=== PATIENT | male | born 1980 | race Caucasian/White ===

== ENCOUNTER 2022-09-24 17:31 | Observation (INO) ==
[2022-09-24] MEDS ORDERED: MoRPHine SULFATE 4 MG/ML 1 ML CARP\\VIAL IV PRN (17:37)
[2022-09-24] MEDS ORDERED: ONDANSETRON INJ 2 MG/ML 2 ML VIAL IV STA (17:37)
[2022-09-24] MEDS ORDERED: cefOXitin 2,000 MG/60 ML BAG IV STA (17:39)
[2022-09-24] MEDS ORDERED: SODIUM CHLORIDE 0.9% 1000ML 1,000 ML IV SCH (17:45)
--- NOTE | 2022-09-24 17:45 | Emergency Department Note ---
History of Present Illness General Chief complaint: Abnormal Labs/Diagnostic Testing Stated complaint: APPENDICITIS, REF BY DOC, ABNORMAL LABS Time Seen by Provider: 09/24/22 17:40 History of Present Illness Maximum Pain Intensity: 2 This is a 42-year-old male presenting to the emergency department for evaluation of ongoing right lower quadrant abdominal pain for the past several days. The patient with his primary care physician and had outpatient ultrasound performed. This is POSITIVE for acute appendicitis. The patient now presents to the ER for further care. He rates his current discomfort a 2/10. He last had a small amount of food around 3 PM. No history of abdominal surgery. No fevers or chills. Home Medications Medication Instructions Recorded Confirmed Type Cetirizine (Zyrtec) 10 mg PO DAILY PRN Allergies #0 10/20/13 History tabs Multivitamin 1 tab PO DAILY PRN PRN #0 tabs 10/20/13 History Allergies Allergy/AdvReac Type Severity Reaction Status Date / Time No Known Allergies Allergy Mild Unverified 06/24/07 15:01 Past Med/Surg History Medical History No chronic diseases present Surgical History Hx of LASIK Social History Smoking Status: Never smoker Cigarettes Per Day: 1-2 weekly; Second Hand Exposure: No; Do You Dip or Chew Tobacco: No; Hx Alcohol Use: Yes Alcohol type: beer, wine and hard liquor Hx Substance Use: No Preferred Language: Lithuanian Communication Ability: Effective Photovoltaic Installer Required: No Beliefs That Will Affect Care: None Current Living Situation: Spouse Other Information That Helps Us Care for You: No Feels Safe at Home: Yes Safety Concerns: Feels Safe At This Time Assistive Devices: None Review of Systems A total of 10 systems reviewed and were otherwise negative Physical Exam Vital Signs Vital Signs - 24 hr 09/24/22 17:37 09/24/22 17:50 09/24/22 18:42 Temperature 36.9 C Temperature Source Temporal Artery Scan Pulse Rate 89 83 Pulse Rate [Apical] Pulse Rate [Right Finger] 74 Pulse Rate from SpO2 Sensor Pulse Rhythm [Apical] Pulse Rhythm [Right Finger] Regular Pulse Strength [Apical] Pulse Strength [Right Finger] Normal Respiratory Rate 20 16 Respiratory Effort / Characteristics Non-Labored Non-Labored Spontaneous Respiratory Depth Normal Normal Respiratory Pattern Regular Blood Pressure 142/100 H Blood Pressure [Left Arm] 137/100 Blood Pressure Mean 114 Blood Pressure Mean [Left Arm] 112 Blood Pressure Position [Left Arm] Lying Pulse Oximetry 97 97 Oxygen Delivery Method Room Air Room Air Oxygen Flow Rate Sepsis Recent Fever Within 48 Hours No Sepsis New/Unexplained Change in Mental Status N/A Sepsis Action Taken by Nursing No Action Required 09/24/22 20:00 09/24/22 17:50 09/24/22 18:00 Temperature 37.1 C Temperature Source Oral Pulse Rate 79 87 Pulse Rate [Apical] Pulse Rate [Right Finger] Pulse Rate from SpO2 Sensor Pulse Rhythm [Apical] Pulse Rhythm [Right Finger] Pulse Strength [Apical] Pulse Strength [Right Finger] Respiratory Rate 19 19 Respiratory Effort / Characteristics Respiratory Depth Respiratory Pattern Blood Pressure 140/95 135/98 Blood Pressure [Left Arm] Blood Pressure Mean 110 Blood Pressure Mean [Left Arm] Blood Pressure Position [Left Arm] Pulse Oximetry 96 Oxygen Delivery Method Room Air Oxygen Flow Rate Sepsis Recent Fever Within 48 Hours Sepsis New/Unexplained Change in Mental Status Sepsis Action Taken by Nursing 09/24/22 18:00 09/24/22 18:10 09/24/22 18:20 Temperature Temperature Source Pulse Rate 83 93 H 80 Pulse Rate [Apical] Pulse Rate [Right Finger] Pulse Rate from SpO2 Sensor Pulse Rhythm [Apical] Pulse Rhythm [Right Finger] Pulse Strength [Apical] Pulse Strength [Right Finger] Respiratory Rate 21 23 17 Respiratory Effort / Characteristics Respiratory Depth Respiratory Pattern Blood Pressure Blood Pressure [Left Arm] Blood Pressure Mean Blood Pressure Mean [Left Arm] Blood Pressure Position [Left Arm] Pulse Oximetry Oxygen Delivery Method Oxygen Flow Rate Sepsis Recent Fever Within 48 Hours Sepsis New/Unexplained Change in Mental Status Sepsis Action Taken by Nursing 09/24/22 18:30 09/24/22 18:30 09/24/22 18:40 Temperature Temperature Source Pulse Rate 81 82 Pulse Rate [Apical] Pulse Rate [Right Finger] Pulse Rate from SpO2 Sensor Pulse Rhythm [Apical] Pulse Rhythm [Right Finger] Pulse Strength [Apical] Pulse Strength [Right Finger] Respiratory Rate 21 31 H Respiratory Effort / Characteristics Respiratory Depth Respiratory Pattern Blood Pressure 137/100 Blood Pressure [Left Arm] Blood Pressure Mean 112 Blood Pressure Mean [Left Arm] Blood Pressure Position [Left Arm] Pulse Oximetry Oxygen Delivery Method Oxygen Flow Rate Sepsis Recent Fever Within 48 Hours Sepsis New/Unexplained Change in Mental Status Sepsis Action Taken by Nursing 09/24/22 18:50 09/24/22 19:00 09/24/22 19:00 Temperature Temperature Source Pulse Rate 76 72 Pulse Rate [Apical] Pulse Rate [Right Finger] Pulse Rate from SpO2 Sensor 74 Pulse Rhythm [Apical] Pulse Rhythm [Right Finger] Pulse Strength [Apical] Pulse Strength [Right Finger] Respiratory Rate 19 18 Respiratory Effort / Characteristics Respiratory Depth Respiratory Pattern Blood Pressure 138/97 Blood Pressure [Left Arm] Blood Pressure Mean 110 Blood Pressure Mean [Left Arm] Blood Pressure Position [Left Arm] Pulse Oximetry 98 Oxygen Delivery Method Oxygen Flow Rate Sepsis Recent Fever Within 48 Hours Sepsis New/Unexplained Change in Mental Status Sepsis Action Taken by Nursing 09/24/22 19:10 09/24/22 19:20 09/24/22 19:30 Temperature Temperature Source Pulse Rate 76 81 Pulse Rate [Apical] Pulse Rate [Right Finger] Pulse Rate from SpO2 Sensor 76 80 Pulse Rhythm [Apical] Pulse Rhythm [Right Finger] Pulse Strength [Apical] Pulse Strength [Right Finger] Respiratory Rate 21 22 Respiratory Effort / Characteristics Respiratory Depth Respiratory Pattern Blood Pressure 140/95 Blood Pressure [Left Arm] Blood Pressure Mean 110 Blood Pressure Mean [Left Arm] Blood Pressure Position [Left Arm] Pulse Oximetry 97 96 Oxygen Delivery Method Oxygen Flow Rate Sepsis Recent Fever Within 48 Hours Sepsis New/Unexplained Change in Mental Status Sepsis Action Taken by Nursing 09/24/22 19:30 09/24/22 19:40 09/24/22 19:50 Temperature Temperature Source Pulse Rate 80 82 89 Pulse Rate [Apical] Pulse Rate [Right Finger] Pulse Rate from SpO2 Sensor 80 83 88 Pulse Rhythm [Apical] Pulse Rhythm [Right Finger] Pulse Strength [Apical] Pulse Strength [Right Finger] Respiratory Rate 20 24 22 Respiratory Effort / Characteristics Respiratory Depth Respiratory Pattern Blood Pressure Blood Pressure [Left Arm] Blood Pressure Mean Blood Pressure Mean [Left Arm] Blood Pressure Position [Left Arm] Pulse Oximetry 97 98 96 Oxygen Delivery Method Oxygen Flow Rate Sepsis Recent Fever Within 48 Hours Sepsis New/Unexplained Change in Mental Status Sepsis Action Taken by Nursing 09/24/22 21:40 Temperature 36.8 C Temperature Source Oral Pulse Rate Pulse Rate [Apical] 114 H Pulse Rate [Right Finger] Pulse Rate from SpO2 Sensor Pulse Rhythm [Apical] Regular Pulse Rhythm [Right Finger] Pulse Strength [Apical] Normal Pulse Strength [Right Finger] Respiratory Rate 24 Respiratory Effort / Characteristics Non-Labored Spontaneous Respiratory Depth Normal Respiratory Pattern Regular Blood Pressure Blood Pressure [Left Arm] 167/84 H Blood Pressure Mean Blood Pressure Mean [Left Arm] 111 Blood Pressure Position [Left Arm] Semi-fowlers Pulse Oximetry 100 Oxygen Delivery Method Oxymask Oxygen Flow Rate 6 Sepsis Recent Fever Within 48 Hours Sepsis New/Unexplained Change in Mental Status Sepsis Action Taken by Nursing VITALS: Vitals are noted on the nurse's note and reviewed by myself. Vital signs stable. GENERAL: Well-developed, well-nourished, white male, who is in no acute distress and resting comfortably. Patient is cooperative with the examination. HEAD: Normocephalic atraumatic. HEART: Regular rate and rhythm without murmurs gallops or rubs. LUNGS: Clear to auscultation bilaterally without wheezes, rales or rhonchi. No retractions or accessory muscle use. ABDOMEN: Positive normal bowel sounds x 4. Soft, with reproducible tenderness in the right lower quadrant. MUSCULOSKELETAL: No muscle atrophy, erythema, or edema noted. Full range of motion in all extremities. NEURO: Patient was alert and oriented to person place and time. CN II through XII grossly intact. Course Administered Medications Discontinued Medications Bupivacaine HCl/Epinephrine Bitart (Bupivacaine/Epinephrine 0.5% Mpf 1:200,000 30 Ml Vial) Confirm Administered Dose 30 ml .ROUTE .Slice-MED ONE Stop: 09/24/22 18:04 Last Admin: 09/24/22 21:28 Dose: 30 ml Documented By: KHOI Sodium Chloride (Nss 1000ml) 1,000 mls @ 999 mls/hr IV .Q1H1M SUMI Stop: 09/24/22 18:45 Last Infusion: 09/24/22 19:55 Dose: 0 mls/hr Documented By: PAD CUTTER Admin: 09/24/22 18:31 Dose: 999 mls/hr Documented By: JUAN Cefoxitin Sodium (Mefoxin) 2,000 mg in 60 mls @ 100 mls/hr IV NOW STA Stop: 09/24/22 18:14 Last Infusion: 09/24/22 19:05 Dose: 0 mls/hr Documented By: Admin: 09/24/22 18:29 Dose: 100 mls/hr Documented By: PAD CUTTER Ondansetron HCl (Ondansetron Inj 2 Mg/Ml 2 Ml Vial) 4 mg IV NOW STA Stop: 09/24/22 17:38 Last Admin: 09/24/22 22:58 Dose: Not Given Documented By: EGS Medical Decision Making Differential Diagnosis Differential diagnosis: Etiologies such as biliary colic, cholecystitis, hepatitis, pancreatitis, cardiac disease, pancreatitis, gastritis, peptic ulcer disease, appendicitis, cystitis, diverticulitis, mesenteric ischemia, inflammatory bowel disease, ileus, bowel obstruction, testicular/adnexal torsion, aortic pathology, shingles, as well as others were considered Laboratory Data 09/24/22 17:50 09/24/22 17:50 Lab Results 09/24/22 09/24/22 09/24/22 Range/Units 17:50 17:50 18:05 WBC 15.42 H (4.8-10.8) K/ul RBC 4.95 (4.70-6.10) M/uL Hgb 15.5 (14.0-18.0) g/dl Hct 42.6 (42.0-52.0) % MCV 86.1 (80.0-100.0) fL MCH 31.3 (25.0-34.0) pg MCHC 36.4 H (32.0-36.0) g/dL RDW Std Deviation 38.1 (36.4-46.3) fL RDW Coeff of Mabel 12.1 (11.5-14.5) % Plt Count 256 (130-400) K/uL MPV 9.3 L (9.4-12.4) fL Immature Gran % (Auto) 0.3 % Neut % (Auto) 75.4 % Lymph % (Auto) 17.3 % [place] % (Auto) 6.6 % Eos % (Auto) 0.2 % Baso % (Auto) 0.2 % Neut # (Auto) 11.62 H (1.40-6.50) K/uL Lymph # (Auto) 2.67 (1.2-3.4) K/uL [place] # (Auto) 1.02 H (0.11-0.59) K/uL Eos # (Auto) 0.03 (0-0.50) K/uL Baso # (Auto) 0.03 (0-0.2) K/uL Immature Gran # (Auto) 0.05 (0.01-0.20) K/uL Sodium 138 (136-145) mmol/L Potassium 3.5 (3.5-5.1) mmol/L Chloride 104 (98-107) mmol/L Carbon Dioxide 27 (21-32) mmol/L Anion Gap 7 (3-11) BUN 9 (6-23) mg/dl Creatinine 1.03 (0.6-1.4) mg/dl Est Cr Clr Drug Dosing 107.4 ml/min Est GFR ( Amer) 103.4 ml/min Est GFR (Non-Af Amer) 89.2 ml/min BUN/Creatinine Ratio 8.7 L (10-20) Glucose 94 (70-99(Fasting)) mg/dl Calcium 9.4 (8.6-10.3) mg/dl Total Bilirubin 0.7 (0.2-1.0) mg/dl AST 16 (13-39) U/L ALT 17 (7-52) U/L Alkaline Phosphatase 68 (34-104) U/L Total Protein 7.9 (6.0-8.3) gm/dl Albumin 4.6 (3.4-5.0) gm/dl Globulin 3.3 (2.5-4.0) gm/dl Albumin/Globulin Ratio 1.4 (0.9-2) SARS-CoV-2, RNA, NAAT NEGATIVE (NEGATIVE) Imaging Data Radiologist's Impression: Differential diagnosis: Etiologies such as biliary colic, cholecystitis, hepatitis, pancreatitis, cardiac disease, pancreatitis, gastritis, peptic ulcer disease, appendicitis, cystitis, diverticulitis, mesenteric ischemia, inflammatory bowel disease, ileus, bowel obstruction, testicular/adnexal torsion, aortic pathology, shingles, as well as others were considered MDM Narrative Physical exam and history were performed. Nursing notes, EMR, and Medication List were personally reviewed. No social concerns were identified as barriers to patients care. Patient appears to have right lower quadrant abdominal pain with outpatient ultrasound that was POSITIVE for acute appendicitis. IV access was established and labs were obtained. Patient was made NPO. He was hydrated with normal saline and given IV Mefoxin. Orders for morphine and Zofran were placed. COVID is ordered and negative. Patient's blood work is as above and was reviewed. He does have a slightly elevated white blood cell count. He does not have significant anemia or gross electrolyte imbalance. Remaining labs are nondiagnostic. I did reach out to the on-call surgical team, and discussed the case with Dr. Massey, who will evaluate the patient. Please see the surgical team dictation for further patient course, plan, and disposition. The chart was completed utilizing [employer] Speech Voice Recognition Software. Grammatical errors, random word insertions, pronoun errors, and incomplete sentences are an occasional consequence of this system due to software limitations, ambient noise, and hardware issues. Any formal questions or concerns about the content, text, or information contained within the body of th is dictation should be directly addressed to the provider for clarification. . Impression & Plan Acute appendicitis Discharge Plan Visit Data Chief Complaint: Abnormal Labs/Diagnostic Testing Stated Complaint: APPENDICITIS, REF BY DOC, ABNORMAL LABS ED Provider: Dallas Shukla ED Midlevel Provider: Perry White Discharge Problem: Acute appendicitis Patient Disposition: Admitted As Inpatient Discharge Instructions Interventions: ED Discharge Assessment Last Done: 09/24/22 20:00
[2022-09-24] MEDS ORDERED: BUPIVACAINE/EPINEPHRINE 0.5% MPF 1:200,000 30 ML VIAL ONE (18:03)
[2022-09-24 18:08] LABS: Basophils # (auto) 0.03 K/uL (0-0.2); Basophils % (auto) 0.2 %; Eosinophils # (auto) 0.03 K/uL (0-0.50); Eosinophils % (auto) 0.2 %; Hematocrit (blood only) 42.6 % (42.0-52.0); Hemoglobin 15.5 g/dl (14.0-18.0); Immature Granulocytes # (auto) 0.05 K/uL (0.01-0.20); Immature Granulocytes % (auto) 0.3 %; Lymphocytes # (auto) 2.67 K/uL (1.2-3.4); Lymphocytes % (auto) 17.3 %; Mean Corpuscular Hemoglobin 31.3 pg (25.0-34.0); Mean Corpuscular Hgb Conc 36.4 g/dL (32.0-36.0); Mean Corpuscular Volume 86.1 fL (80.0-100.0); Mean Platelet Volume 9.3 fL (9.4-12.4); Monocytes # (auto) 1.02 K/uL (0.11-0.59); Monocytes % (auto) 6.6 %; Neutrophils # (auto) 11.62 K/uL (1.40-6.50); Neutrophils % (auto) 75.4 %; Platelet Count 256 K/uL (130-400); RDW Coefficient of Variation 12.1 % (11.5-14.5); RDW Standard Deviation 38.1 fL (36.4-46.3); Red Blood Count 4.95 M/uL (4.70-6.10); White Blood Count 15.42 K/ul (4.8-10.8)
[2022-09-24 18:24] LABS: Albumin Globulin Ratio 1.4 (0.9-2); Albumin Level 4.6 gm/dl (3.4-5.0); BUN Creatinine Ratio 8.7 (10-20); Bilirubin,Total 0.7 mg/dl (0.2-1.0); Calcium 9.4 mg/dl (8.6-10.3); Creatinine Clr Calc Pharmacy 107.4 ml/min; Est GFR (African American) 103.4 ml/min; Est GFR (Non-African American) 89.2 ml/min; Globulin 3.3 gm/dl (2.5-4.0); Potassium 3.5 mmol/L (3.5-5.1); Total Protein 7.9 gm/dl (6.0-8.3)
[2022-09-24] MEDS ORDERED: fentaNYL citrate PF 100 MCG/2 ML VIAL IV PRN (18:41)
[2022-09-24] MEDS ORDERED: ePHEDrine sulfate 50 MG/ML AMP IV PRN (18:41)
[2022-09-24] MEDS ORDERED: ONDANSETRON INJ 2 MG/ML 2 ML VIAL IV PRN ×2 (18:41→22:57)
[2022-09-24] MEDS ORDERED: HYDROmorphone INJ 2 MG/ML SYR/VIAL IV PRN (18:41)
[2022-09-24] MEDS ORDERED: PROMETHAZINE HCL 6.25 MG in SODIUM CHLORIDE 0.9% 50 ML IV PRN (18:41)
[2022-09-24] MEDS ORDERED: ATROPINE SULFATE 0.1 MG/ML 10ML SYR IV PRN (18:41)
[2022-09-24] MEDS ORDERED: DEXAMETHASONE SOD INJ 4 MG/ML VIAL ONE (19:00)
[2022-09-24] MEDS ORDERED: ONDANSETRON INJ 2 MG/ML 2 ML VIAL ONE (19:00)
[2022-09-24] MEDS ORDERED: ROCURONIUM BROMIDE 10 MG/ML 5 ML VIAL IV ONE (19:00)
[2022-09-24] MEDS ORDERED: MIDAZOLAM HCL 1 MG/ML 2ML VIAL ONE (19:00)
[2022-09-24] MEDS ORDERED: fentaNYL citrate PF 100 MCG/2 ML VIAL ONE (19:00)
[2022-09-24] MEDS ORDERED: SUGAMMADEX SODIUM 200 MG/2 ML VIAL IV ONE (19:00)
[2022-09-24] MEDS ORDERED: LIDOCAINE 2% MPF LOCAL 5 ML VIAL ONE (19:00)
[2022-09-24] MEDS ORDERED: PROPOFOL IV EMULSION 10 MG/ML 20 ML VIAL IV ONE (19:00)
[2022-09-24] MEDS ORDERED: SUCCINYLCHOLINE CHLORIDE 20 MG/ML 10 ML VIAL IV ONE (19:00)
--- NOTE | 2022-09-24 20:14 | Anesthesiology Consultation ---
Date of Service September 24, 2022 Assessment & Plan (1) Encounter for pre-operative examination: Chart Review Chart Review: Acceptable Risk for Surgery and Patient NOT seen in Pre Admission Testing Consults Requested none History Surgery Operation Date: 09/24/22 19:30 Proposed Procedures p Laparoscopic Appendectomy - Prasanna Massey DO Height/Weight Height: 5 ft 9 in Weight: 97.2 kg Allergies Allergy/AdvReac Type Severity Reaction Status Date / Time No Known Allergies Allergy Mild Unverified 06/24/07 15:01 Medications Home Medications Medication Instructions Recorded Confirmed Last Taken Cetirizine (Zyrtec) 10 mg PO DAILY PRN Allergies #0 10/20/13 Unknown tabs Multivitamin 1 tab PO DAILY PRN PRN #0 tabs 10/20/13 Unknown Past Medical History Medical History No chronic diseases present Exercise / Class Metabolic Activity II 4-5 Yardwork/Stairs/Walk up hill Past Surgical History Surgical History Hx of LASIK Past Anesthesia History No Hx of Anesthesia Complications and No Family Hx of Anesthesia Complications History of PONV No Hx of PONV and No Hx of Motion Sickness Social History Smoking Status: Never smoker Physical Exam Vital Signs Last Vital Signs Temp 37.1 C 09/24/22 20:00 Pulse 79 09/24/22 20:00 Resp 19 09/24/22 20:00 BP 140/95 09/24/22 20:00 Pulse Ox 96 09/24/22 20:00 O2 Del Method Room Air 09/24/22 20:00 Testing Laboratory Results 09/24/22 17:50 09/24/22 17:50
--- NOTE | 2022-09-24 20:32 | History & Physical Report ---
Date of Service September 24, 2022 Assessment & Plan (1) Acute appendicitis: Plan: Clinically also consistent with acute appendicitis. Discussed his options as well as risks of surgery which include bleeding infection injury to another organ such as bowel or ureter or bladder DVT PE PA CVA etc. Following our discussion I answered all of his questions. We will proceed LEEROY with laparoscopic appendectomy. Patient agrees to the plan. History of Present Illness Primary Care Provider: Nasreen Morales MD 42-year-old male who has not felt well for several days. He had kind of mid abdominal pain with radiation to his right mid abdomen. He was sent in by his PCP for an outpatient ultrasound which showed acute appendicitis. His white blood cell count of 15,000. Allergies Allergy/AdvReac Type Severity Reaction Status Date / Time No Known Allergies Allergy Mild Unverified 06/24/07 15:01 Home Medications Medication Instructions Recorded Confirmed Type Cetirizine (Zyrtec) 10 mg PO DAILY PRN Allergies #0 10/20/13 History tabs Multivitamin 1 tab PO DAILY PRN PRN #0 tabs 10/20/13 History Past Med/Surg History Medical History No chronic diseases present Surgical History Hx of LASIK Social History Smoking Status: Never smoker Feels Safe at Home: Yes Review of Systems All systems reviewed & are unremarkable except as noted in HPI & below Physical Exam Constitutional: WD/WN, vitals as above no acute distress and not ill appearing Eyes: PERRL, conjunctivae normal, anicteric sclerae EOM intact bilaterally ENMT: external ear and nose normal, oropharynx normal Ears: no hearing impairment Neck: trachea midline, no thyromegaly Respiratory: normal respiratory effort; no respiratory distress and does not use accessory muscles Cardiovascular: Rate/Rhythm: regular rate and regular rhythm Gastrointestinal (Abdomen): Soft. Positive right lower quadrant tenderness. Positive rebound. Positive Rovsing. Skin: no rashes, warm and dry Psychiatric: Orientation: alert, oriented x 3 and cooperative Results & Data Vital Signs (Past 12 Hours) Vital Signs Temp Pulse Pulse Resp BP BP Pulse Ox 09/24/22 19:50 89 22 96 09/24/22 19:40 82 24 98 09/24/22 19:30 80 20 97 09/24/22 19:30 140/95 09/24/22 19:20 81 22 96 09/24/22 19:10 76 21 97 09/24/22 19:00 72 18 98 09/24/22 19:00 138/97 09/24/22 18:50 76 19 09/24/22 18:40 82 31 H 09/24/22 18:30 81 21 09/24/22 18:30 137/100 09/24/22 18:20 80 17 09/24/22 18:10 93 H 23 09/24/22 18:00 83 21 09/24/22 18:00 135/98 09/24/22 17:50 87 19 09/24/22 20:00 37.1 C 79 19 140/95 96 09/24/22 18:42 74 16 137/100 97 09/24/22 17:50 83 09/24/22 17:37 36.9 C 89 20 142/100 H 97 O2 Del Method 09/24/22 19:50 09/24/22 19:40 09/24/22 19:30 09/24/22 19:30 09/24/22 19:20 09/24/22 19:10 09/24/22 19:00 09/24/22 19:00 09/24/22 18:50 09/24/22 18:40 09/24/22 18:30 09/24/22 18:30 09/24/22 18:20 09/24/22 18:10 09/24/22 18:00 09/24/22 18:00 09/24/22 17:50 09/24/22 20:00 Room Air 09/24/22 18:42 Room Air 09/24/22 17:50 09/24/22 17:37 Room Air
[2022-09-24] MEDS ORDERED: diphenhydrAMINE 50 MG/ML VIAL ONE (21:03)
--- NOTE | 2022-09-24 21:45 | Operative Report ---
PG Post Operative Report Pre & Post Diagnosis Operation Date: 09/24/22 19:30 Pre-Op Diagnosis: APPENDICITIS Post-Op Diagnosis: APPENDICITIS I identified the patient and participated in the time-out.: Yes Procedure Operation Date: 09/24/22 19:30 Actual Procedures p Laparoscopic Appendectomy - Prasanna Massey DO Surgeon Prasanna Massey DO Tool Mechanic n/a Estimated Blood Loss 10 Findings Consistent with Post-Op Diagnosis Specimens appendix Description of Procedure After informed consent was obtained the patient was taken to the operating room and placed in supine position. After successful intubation a Barber catheter was placed and the left arm was tucked. I began by making a periumbilical incision with an 11 blade scalpel and carried this down through the soft tissue using electrocautery. The anterior rectus fascia was opened using electrocautery and 2 #0 Vicryl stay sutures were placed. The peritoneum was elevated using hemostats and incised under direct vision using a Metzenbaum scissor. A finger sweep was performed. A 12 mm Acosta trocar was placed and the abdomen was insufflated to 18 mmHg. A laparoscope was inserted and the abdomen was examined in 360. A suprapubic 5 mm port and a left lower quadrant 12 mm port were placed under direct vision. The patient was air planed to the left as well as placed in a slight Trendelenburg position. We began by looking in the right lower quadrant. We were able to readily identify the appendix and it was grossly inflamed. It had not perforated. There was a small amount of purulent fluid in the right lower quadrant and the pelvis. We immediately irrigated and suctioned this out. I was able to use primarily blunt dissection to pull the appendix away from the right lower quadrant sidewall. Next I created a window in the mesentery of the appendix near its base with the cecum. I was then able to use a JACQUELIN brown cartridge stapler to transect first the mesentery of the appendix followed by the appendix itself at its base with the cecum. It was then placed into an Endo Catch bag and removed from the camera port site. We thoroughly irrigated the right lower quadrant as well as the pelvis. There was a small bleeding point on the staple line of the mesentery which I controlled using a Hemoclip. There was adequate hemostasis. I ran the small bowel backwards from the terminal ileum for about 6 feet all of which was normal. All the peritoneal surfaces were normal. Small/ large bowel, liver, stomach etc. all appeared grossly normal. We did a final irrigation and then removed all the trochars and desufflated the abdomen. The fascia of the camera port as well as the left lower quadrant were closed using 0 Vicryl in [id number] fashion. Wounds were all irrigated and closed using 4-0 Monocryl. Marcaine was injected around them for postoperative analgesia and skin glue used as a dressing. The patient was awakened extubated and transferred to recovery in stable condition. I attest to the content of the Intraoperative Record and any orders documented therein. Any exceptions are noted below.
--- NOTE | 2022-09-24 21:58 | Anesthesiology Progress Note ---
Date of Service September 24, 2022 Anesthesia Post Procedure Vital Signs Vital Signs: Temp Pulse Pulse Pulse Resp BP BP 09/24/22 21:50 100 H 22 152/86 H 09/24/22 21:40 36.8 C 114 H 24 167/84 H 09/24/22 19:50 89 22 09/24/22 19:40 82 24 09/24/22 19:30 80 20 09/24/22 19:30 140/95 09/24/22 19:20 81 22 09/24/22 19:10 76 21 09/24/22 19:00 72 18 09/24/22 19:00 138/97 09/24/22 18:50 76 19 09/24/22 18:40 82 31 H 09/24/22 18:30 81 21 09/24/22 18:30 137/100 09/24/22 18:20 80 17 09/24/22 18:10 93 H 23 09/24/22 18:00 83 21 09/24/22 18:00 135/98 09/24/22 17:50 87 19 09/24/22 20:00 37.1 C 79 19 140/95 09/24/22 18:42 74 16 137/100 09/24/22 17:50 83 09/24/22 17:37 36.9 C 89 20 142/100 H Pulse Ox O2 Del Method O2 Flow Rate 09/24/22 21:50 100 Oxymask 4 09/24/22 21:40 100 Oxymask 6 09/24/22 19:50 96 09/24/22 19:40 98 09/24/22 19:30 97 09/24/22 19:30 09/24/22 19:20 96 09/24/22 19:10 97 09/24/22 19:00 98 09/24/22 19:00 09/24/22 18:50 09/24/22 18:40 09/24/22 18:30 09/24/22 18:30 09/24/22 18:20 09/24/22 18:10 09/24/22 18:00 09/24/22 18:00 09/24/22 17:50 09/24/22 20:00 96 Room Air 09/24/22 18:42 97 Room Air 09/24/22 17:50 09/24/22 17:37 97 Room Air Pain Intensity Right Abdomen: Pain Intensity: 2 Abdomen: Pain Intensity: 4 Transfer of Care Handoff Completed per policy Notes Mental Status: alert / awake / arousable and participated in evaluation Patient Amnestic to Procedure: Yes Nausea / Vomiting: adequately controlled Pain: adequately controlled Airway Patency, RR, SpO2: stable & adequate BP & HR: stable & adequate Hydration State: stable & adequate Anesthetic Complications: no major complications apparent and Pt Satisfied with anesthetic care
[2022-09-24] MEDS ORDERED: oxyCODONE HCL IR 5 MG TAB (IMMEDIATE RELEASE) PO PRN ×2 (22:57)
[2022-09-24] MEDS ORDERED: HYDROmorphone INJ 0.5 MG/0.5 ML SYR IV PRN ×2 (22:57)
[2022-09-24] MEDS: SODIUM CHLORIDE 0.9% 1000ML 1,000 ML IV SCH (23:47)
[2022-09-24] MEDS: ACETAMINOPHEN 1,000 MG/100 ML VIAL IV SCH (23:47)
[2022-09-25 06:30] LABS: Hematocrit (blood only) 38.2 % (42.0-52.0); Hemoglobin 13.4 g/dl (14.0-18.0); Mean Corpuscular Hemoglobin 31.4 pg (25.0-34.0); Mean Corpuscular Hgb Conc 35.1 g/dL (32.0-36.0); Mean Corpuscular Volume 89.5 fL (80.0-100.0); Mean Platelet Volume 9.7 fL (9.4-12.4); Platelet Count 229 K/uL (130-400); RDW Coefficient of Variation 12.2 % (11.5-14.5); RDW Standard Deviation 39.6 fL (36.4-46.3); Red Blood Count 4.27 M/uL (4.70-6.10); White Blood Count 11.65 K/ul (4.8-10.8)
[2022-09-25 06:55] LABS: Basophils # (auto) 0.02 K/uL (0-0.2); Basophils % (auto) 0.2 %; Immature Granulocytes # (auto) 0.06 K/uL (0.01-0.20); Immature Granulocytes % (auto) 0.5 %; Lymphocytes # (auto) 0.72 K/uL (1.2-3.4); Lymphocytes % (auto) 6.2 %; Monocytes # (auto) 0.35 K/uL (0.11-0.59); Neutrophils % (auto) 90.1 %
[2022-09-25] MEDS: SODIUM CHLORIDE 0.9% 1000ML 1,000 ML IV SCH (07:02)
[2022-09-25] MEDS: ACETAMINOPHEN 1,000 MG/100 ML VIAL IV SCH (07:59)
--- NOTE | 2022-09-25 08:26 | Surgery Progress Note ---
Date of Service September 25, 2022 Assessment & Plan (1) Acute appendicitis: Plan: Postoperative day #1 Doing well Okay for discharge Instructions given Admission and Anticipated Discharge Date Admission Date: September 24, 2022 Subjective Postoperative day #1. Feeling well. No complaints Physical Exam Physical Exam: Alert. No acute distress Abdomen soft with expected incisional tenderness Results & Data Vital Signs (Past 12 Hours) Vital Signs Temp Pulse Pulse Resp BP BP Pulse Ox 09/25/22 07:36 36.8 C 85 18 119/72 94 09/25/22 01:51 37.5 C 92 H 16 127/83 95 09/25/22 00:51 37.6 C H 96 H 16 133/83 94 09/24/22 23:45 37.6 C H 104 H 16 169/98 H 143/92 H 95 09/24/22 23:10 36.8 C 97 H 16 158/89 H 94 09/24/22 22:40 36.7 C 96 H 18 138/86 96 09/24/22 22:20 37.0 C 94 H 24 141/95 H 97 09/24/22 22:10 93 H 20 143/85 H 99 09/24/22 22:00 92 H 22 157/87 H 100 09/24/22 21:50 100 H 22 152/86 H 100 09/24/22 21:40 36.8 C 114 H 24 167/84 H 100 O2 Del Method O2 Flow Rate 09/25/22 07:36 Room Air 09/25/22 01:51 Room Air 09/25/22 00:51 Room Air 09/24/22 23:45 Room Air 09/24/22 23:10 Room Air 09/24/22 22:40 Room Air 09/24/22 22:20 Room Air 09/24/22 22:10 Oxymask 3 09/24/22 22:00 Oxymask 4 09/24/22 21:50 Oxymask 4 09/24/22 21:40 Oxymask 6 PG Care Time/CCT Total # of Minutes Spent Total Time Spent with Patient: Total time spent is greater than 50% in coordination of care (as documented) at patient's floor/unit and/or counseling patient: Coding Level of Care Code 07808 Post Operative Follow-Up Diagnoses Acute appendicitis K35.80
== END 2022-09-25 10:23 | disposition home or self-care (01) ==
LOC: ED 17:31 → OR 20:00 → 3N 20:00